=== PATIENT | male | born 1980 | race Caucasian/White ===

== ENCOUNTER 2019-12-11 19:11 | Inpatient (IN) | payer OTHER ==
[~2019-12-11] VITALS: Ht 172.7 cm; Wt 93.0 kg
[~2019-12-11 19:11] MED LIST: ACET1TAB55 PO; CIPR1.5I IV; CIPR500T19 PO; FLAG500T PO; GABA-843 PO; IBUP40TA PO; MORP2CAR IV; MYLASSUD PO; OMEP1CAP73 PO; ONDA4VLL IV; PERCOCET PO; PROT40IN4 IV; [UNRECOGNIZED DRUG - CODE] IV; metronidazole IV; no home meds
[2019-12-11] MEDS: ENOXAPARIN 40MG/0.4ML SYRINGE (J1650 PER 10MG) SC SCH (21:00)
[2019-12-11 21:20] VITALS: BP 124/75
[2019-12-11] MEDS ORDERED: GABA600T4 PO (21:43)
[2019-12-11] MEDS ORDERED: ACETAMINOPHEN TAB 650MG DOSE (2X325MG) PO PRN (22:00)
[2019-12-11] MEDS ORDERED: ADVA115A INH (22:24)
[2019-12-11] MEDS ORDERED: ALBU8.5H PO (22:24)
[2019-12-11] MEDS: cefTRIAXone SOD 2 GM in D5W MINI-BAG PLUS 50 ML IV SCH (22:39)
[2019-12-11 23:01] VITALS: O2SAT 95
[2019-12-11 23:41] VITALS: O2SAT 93
[2019-12-11] MEDS ORDERED: IBUPROFEN 400 MG TAB PO PRN (23:45)
[2019-12-11] MEDS ORDERED: ALBUTEROL 90 MCG/ACT 8GM HFA INHALER INH PRN (23:45)
[2019-12-12] VITALS (7 sets, daily range): BP systolic 103–120; BP diastolic 60–68; O2SAT 88–95
[2019-12-12] MEDS: GABAPENTIN 300 MG CAP PO SCH ×4 (00:09→21:36)
[2019-12-12] MEDS: METOCLOPRAMIDE INJ 10MG/2ML VIAL (J2765 PER 1) IV PRN (00:10)
[2019-12-12] MEDS: NICOTINE 14 MG/24 HR TRANSDERMAL TD SCH ×2 (00:10→08:59)
[2019-12-12] MEDS: ACETAMINOPH W/CODEINE #3 TAB UD PO PRN ×3 (00:10→13:27)
[2019-12-12 00:11] LABS: ALBUMIN 3.7 GM/DL (3.2-5.2); ALT/SGPT 45 U/L (12-78); BILIRUBIN,TOTAL 0.9 MG/DL (0.2-1.0); BLOOD UREA NITROGEN 15 MG/DL (7-18); CALCIUM LEVEL 8.2 MG/DL (8.5-10.1); CARBON DIOXIDE LEVEL 32 MEQ/L (21-32); CHLORIDE LEVEL 103 MEQ/L (98-107); CREATININE FOR GFR 1.24 MG/DL (0.70-1.30); GLOMERULAR FILTRATION RATE > 60.0 (>60); GLUCOSE, FASTING 93 MG/DL (70-100); POTASSIUM SERUM 3.7 MEQ/L (3.5-5.1); SODIUM LEVEL 138 MEQ/L (136-145); TOTAL PROTEIN 7.1 GM/DL (6.4-8.2)
--- NOTE | 2019-12-12 00:30 | REPVR ---
PROCEDURE INFORMATION: Exam: CT Head Without Contrast Exam date and time: 12/12/2019 12:21 AM Age: 39 years old Clinical indication: Pain; Headache; Additional info: Severe headache TECHNIQUE: Imaging protocol: Computed tomography of the head without contrast. Radiation optimization: All CT scans at this facility use at least one of these dose optimization techniques: automated exposure control; mA and/or kV adjustment per patient size (includes targeted exams where dose is matched to clinical indication); or iterative reconstruction. COMPARISON: No relevant prior studies available. FINDINGS: Brain: Normal. No hemorrhage. Unremarkable white matter. No mass effect. Ventricles: Normal. No ventriculomegaly. Bones/joints: Unremarkable. No acute fracture. Sinuses: Visualized sinuses are unremarkable. No fluid levels. Mastoid air cells: Visualized mastoid air cells are well aerated. Soft tissues: Unremarkable. IMPRESSION: No acute intracranial abnormality. Electronically signed by: Emilio Medellin On 12/12/2019 00:30:41 AM
[2019-12-12] MEDS: AZITHROMYCIN INJ 500 MG, VIAL MATE ADAPTER 1 EACH in D5W 250 ML IV SCH ×2 (00:44→22:15)
--- NOTE | 2019-12-12 01:09 | HPEPDOC ---
General Date of Admission December 11, 2019 at 21:07 Date of Service: December 11, 2019 Attending Physician: KENIA SORIANO MD Chief Complaint The patient is a 39-year-old male admitted with a reason for visit of Acute Kidney Injury. 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 At [facility] he had mild leukocytosis and CT chest was grossly normal without any opacities or effusion while D-dimer was 0.8, wnl. While there he reported that several of his workmates have also reported feeling unwell such that his place of work has now closed as a precautionary measure in the setting of the covid-19 crisis. He reported recently having been tested for covid 3 days ago in the outpatient setting and was negative. He was transferred to [facility] with c/f covid-19 infection. At [facility], he arrived hemodynamically stable, afebrile but hypoxemic to mid 80s on room air and was placed on 2L NC. He was otherwise not in distress but flushed, reporting 9-10 frontal headache that is worse when he coughs and not his typical occipital headaches. He reports having a mildly productive cough, episodic fevers that he has been taking tylenol, episodic palpitations and generalized achiness. He otherwise denies chest pain, extremity swelling, recent travel, abdominal pain, N/V/D/constipation/hemoptysisi, hematemesis, hematuria, melena, hematochezia, rashes, easy bruising. Home Medications Scheduled Fluticasone Propion/Salmeterol (Advair Hfa 115-21 Mcg Inhaler) 12 Gm Hfa.aer.ad, 2 PUFFS INH BID, (Reported) Gabapentin (Gabapentin) 600 Mg Tablet, 600 MG PO TID, (Reported) Omeprazole (Omeprazole) 20 Mg Cap, 20 MG PO DAILY, (Reported) Scheduled PRN Acetaminophen (Acetaminophen) 325 Mg Tab, 650 MG PO Q6HP PRN for PAIN OR FEVER, (Reported) Albuterol Sulfate (Albuterol Sulfate Hfa) 8.5 Gm Hfa.aer.ad, 2 PUFFS PO Q6H PRN for SHORTNESS OF BREATH, (Reported) Ibuprofen (Ibuprofen) 400 Mg Tab, 400 MG PO Q4HP PRN for PAIN, (Reported) Allergies Coded Allergies: No Known Allergies (Unverified , 02/19/16) Past Medical History Medical History chronic occipital neuralgia, remote history of diverticulitis, remote history of pericarditis, active smoking, asthma Surgical History L inguinal hernia repair Family History Significant Family History: No pertinent family hx Social History * Smoker: current smoker Alcohol: rarely Drugs: denies Recent Travel/Sick Contacts: Denies: Recent travel, Recent sick contacts Psychosocial History: No pertinent psych hx Lives at home with his and young son. Cutting down on smoking, currently on 1/2 ppd, with patches. Rare alcohol. No illicit drugs. A-FIB/CHADSVASC A-FIB History Current/History of A-Fib/PAF?: No Current PO Anticoag Therapy: No Age/Risk Factor Scoring CHADSVASC: CHADSVASC Response (Comments) Value Age Risk Factor Age < 65 years old 0 Gender Risk Factor Male 0 Hx of CHF No 0 Hx of HTN No 0 Hx of Stroke/TIA/or VTE No 0 Hx of Diabetes No 0 Hx of Vascular Disease No 0 Total 0 Treatment Treatment ordered: NONE Reason Anticoagulant not given: Not indicated/[id number] Review of Systems Constitutional: Reports: Chills, Fever, Malaise, Fatigue, Lethargy; Denies: Weight Loss Eyes: Reports: Pain (bilateral eye heaviness from frontal headache); Denies: Vision change, Conjunctivae inflammation, Eyelid inflammation, Re dness ENT: Reports: Head Aches (severe frontal headache currently), Sinus Congestion (feels like his forehead is full, no nasal congestion); Denies: Ear Pain, Dysphagia, Post Nasal Drip, Sore Throat, Epistaxis Skin: Reports: Other (flushed face and chest area); Denies: Rash, Lesions, Breakdown Pulmonary: Reports: Cough; Denies: Dyspnea, Pleuritic Chest Pain Cardiovascular: Reports: Palpitations; Denies: Chest Pain, Orthopnea, Paroxysmal Noc. Dyspnea, Lt Headedness Gastrointestinal: Denies: Nausea, Vomiting, Abdominal Pain, Diarrhea Genitourinary: Denies: Dysuria, Frequency, Incontinence, Retention Hematologic: Denies: Bruising, Bleeding Excessively Endocrine: Denies: Polydipsia, Polyphagia, Polyuria, Heat Intolerance, Cold Intolerance, Other Endocrine Sx Musculoskeletal: Reports: Joint Pain (generalized ), Muscle Pain (generalized); Denies: Neck Pain, Back Pain, Shoulder Pain Neurological: Denies: Weakness, Numbness, Change in speech, Confusion, Seizures Psych: Reports: Mood Normal; Denies: Depression, Memory Issues Physical Examination General Exam: Positive: Alert; Negative: No Acute Distress (he appears uncomfortable without distress) Eye Exam: Positive: PERRLA, EOMI; Negative: Conjunctiva & lids normal (mild swelling of eyelids, with mild conjunctival injection), Sclera icteric, Ptosis ENT Exam: Positive: Atraumatic, Mucous membr. moist/pink, Pharynx Normal, Nares Patent, Tympanic Membranes Normal; Negative: Pharyngeal Edema Neck Exam: Positive: Supple; Negative: JVD, thyromegaly, Lymphadenopathy Chest Exam: Positive: Clear to auscultation, Normal air movement; Negative: Rales, Rhonchi, Wheezing Heart Exam: Positive: Rate Normal, Normal S1, Normal S2; Negative: Gallops, Murmurs, Rubs Telemetry: Positive: No significant arrhythmia Abdomen Exam: Positive: Normal bowel sounds, Soft, Tenderness (LLQ with mild TTP, no guarding or rebound, no masses); Negative: Hepatospenomegaly Extremity Exam: Positive: Normal pulses; Negative: Clubbing, Cyanosis, Edema, Tenderness, Swelling Skin Exam: Positive: Other skin issue (flushed face and chest); Negative: Nl turgor and temperature (warm face), Rash, Breakdown, Lesion, Pruritus Neuro Exam: Positive: Normal Speech, Strength at 5/5 X4 ext, Normal Tone, Sensation Intact, Cranial Nerves 3-12 NL, Reflexes 2+ Psych Exam: Positive: Mental status NL, Memory Intact, Oriented x 3 Vital Signs Vital Signs Date Time Temp Pulse Resp B/P (MAP) Pulse Ox O2 Delivery O2 Flow Rate FiO2 12/11/19 23:01 95 Nasal Cannula 2.0 12/11/19 21:20 98.8 86 17 124/75 (91) Laboratory Data Labs 24H Laboratory Tests 2 12/11/19 21:26: Coronavirus (COVID-19)(PCR) NEGATIVE Assessment/Plan 39 yo M with a history of chronic occipital neuralgia, remote history of diverticulitis, remote history of pericarditis, active smoking and asthma who admitted to [facility] as a transfer from [facility] with c/f covid-19 after presenting with 3d of myalgias, fever, cough and noted hypoxemia and found to have leukocytosis with normal chest CT with covid testing that was ultimately negative and now admitted for presumed developing PNA with ongoing work up while on empiric antibiotic therapy. Presumed CAP: Fever, cough, myalgias and hypoxemia -Empiric ceftriaxone/azithromycin -covid-19 PCR was negative -sputum culture -urine strep and legionella antigens -blood cultures -incentive spirometry -supplemental oxygen with goal >90% -continue home MDIs for asthma, without wheezing on examination Hypoxemic respiratory failure: Likely secondary to a developing PNA, viral vs. bacterial -D-dimer was wnl, highly unlikely PE -CT chest without rolo opacities, likely early PNA, will monitor and give empiric abx for now -No evidence or signs of acute asthma exacerbation at this time, continuing home MDIs -covid-19 PCR negative on arrival. Also history of negative covid-19 testing in the outpatient setting 3d prior -follow up Severe headache out of character from his chronic occipital neuralgia: -noncon head CT, despite nonfocal neuro exam -some suspicion for sinusitis -continue home gabapentin 600 TID -reglan PRN for nausea and headache -has PRN tylenol and ibuprofen PRN for mild to moderate pain, as well as tylenol with codeine PRN of severe pain Asthma: no evidence of acute exacerbation at this time -continue home advair and PRN albuterol MDIs GERD: -continue home omeprazole Subjective episodic palpitations: -telemetry DVT ppx: lovenox SQ Diet: regular Dispo: 4pav inpatient with ongoing infectious workup, on empiric antibiotics Plan / VTE VTE Prophylaxis Ordered?: Yes KENIA SORIANO MD December 12, 2019 00:22
[2019-12-12 06:12] LABS: HEMATOCRIT 43.8 % (42.0-52.0); HEMOGLOBIN 15.2 g/dl (13.5-17.5); MEAN CORPUSCULAR HEMOGLOBIN 32.5 pg (27.0-33.0); MEAN CORPUSCULAR HGB CONC 34.7 g/dl (32.0-36.5); MEAN CORPUSCULAR VOLUME 93.8 fl (80.0-96.0); PLATELET COUNT, AUTOMATED 141 10^3/uL (150-450); RED BLOOD COUNT 4.67 10^6/uL (4.30-6.10); WHITE BLOOD COUNT 8.8 10^3/uL (4.0-10.0)
[2019-12-12] MEDS: NS 1,000 ML IV SCH ×2 (06:24→14:38)
[2019-12-12 06:37] LABS: BLOOD UREA NITROGEN 15 MG/DL (7-18); C REACTIVE PROTEIN QUANTITATIV 8.85 MG/DL (0.00-0.30); CARBON DIOXIDE LEVEL 30 MEQ/L (21-32); CHLORIDE LEVEL 102 MEQ/L (98-107); CREATININE FOR GFR 1.13 MG/DL (0.70-1.30); GLOMERULAR FILTRATION RATE > 60.0 (>60); GLUCOSE, FASTING 85 MG/DL (70-100); POTASSIUM SERUM 3.8 MEQ/L (3.5-5.1); SODIUM LEVEL 139 MEQ/L (136-145)
[2019-12-12 06:38] LABS: ERYTHROCYTE SEDIMENTATION RATE 10 mm/hr (0-15)
[2019-12-12] MEDS: ADVAIR HFA 115/21MCG INHALER INH SCH ×2 (07:09→19:35)
[2019-12-12] MEDS: OMEPRAZOLE 20 MG CAP PO SCH (08:57)
--- NOTE | 2019-12-12 12:32 | IPNPDOC ---
Date Seen The patient was seen on 12/12/19. Progress Note SUBJECTIVE: 39-year-old male with past medical history of occipital neuralgia was admitted for myalgias and weakness with concern for underlying infection. Patient reports profound headache secondary to occipital neuralgia, continues to have polyarthralgia and myalgias, no other complaints. Patient denies any shortness of breath, chest pain, nausea, vomiting, diarrhea or constipation. 10 point review of system is negative except for above PHYSICAL EXAMINATION: VITAL SIGNS: Please see below. GENERAL: No distress HEENT: Normocephalic, atraumatic, moist mucous membranes NECK: Supple CARDIOVASCULAR EXAMINATION: S1, S2, no murmurs RESPIRATORY EXAMINATION: Clear to auscultation, no wheezing ABDOMINAL EXAMINATION: Soft, nontender, nondistended, positive bowel sounds EXTREMITIES: Range of motion intact SKIN: No rash NEUROLOGICAL EXAMINATION: Alert and oriented 3, no focal deficits PSYCHIATRIC EXAMINATION: Calm and cooperative LABORATORY DATA, IMAGING STUDIES, MICROBIOLOGY: Please see below. ASSESSMENT AND PLAN: 39-year-old male with past medical history of occipital neuralgia is admitted for infectious workup. PROBLEMS: 1. Occipital neuralgia: Continue outpatient medication, additional when necessary medication for breakthrough pain. 2. Myalgias/arthralgias: Infectious workup negative to date, no source of infection identified at this time, continue empiric antibiotics until while awaiting cultures, IV hydration. 3. Asthma: Continue Advair DVT prophylaxis: Heparin subcutaneous. GI prophylaxis: PPI VS, I&O, 24H, Fishbone Vital Signs/I&O Vital Signs Date Time Temp Pulse Resp B/P (MAP) Pulse Ox O2 Delivery O2 Flow Rate FiO2 12/12/19 06:28 18 92 Room Air 12/12/19 06:00 97.8 86 103/61 (75) 12/12/19 05:58 2.0 I&O- Last 24 Hours up to 6 AM 12/12/19 06:00 Intake Total 305 ml Output Total 475 ml Balance -170 ml Laboratory Data 24H LABS Laboratory Tests 2 12/11/19 21:26: Coronavirus (COVID-19)(PCR) NEGATIVE 12/11/19 23:30: Anion Gap 3L, Glomerular Filtration Rate > 60.0, Lactic Acid Level 1.0, Calcium Level 8.2L, Total Bilirubin 0.9, Aspartate Amino Transf (AST/SGOT) 30, Alanine Aminotransferase (ALT/SGPT) 45, Alkaline Phosphatase 63, Total Protein 7.1, Albumin 3.7, Albumin/Globulin Ratio 1.1 12/12/19 05:26: Anion Gap 7L, Glomerular Filtration Rate > 60.0, Calcium Level 8.0L, Nucleated Red Blood Cells % (auto) 0.0, Erythrocyte Sedimentation Rate 10, C-Reactive Protein, Quantitative 8.85H 12/12/19 06:03: Urine Color YELLOW, Urine Appearance CLEAR, Urine pH 5.0, Urine Specific Taft 1.010, Urine Protein NEGATIVE, Urine Glucose (UA) NEGATIVE, Urine Ketones NEGATIVE, Urine Blood NEGATIVE, Urine Nitrite NEGATIVE, Urine Bilirubin NEGATIVE, Urine Urobilinogen 0.2, Urine Leukocyte Esterase NEGATIVE, Urine WBC (Auto) 1, Urine RBC (Auto) 0, Urine Hyaline Casts (Auto) 0, Urine Bacteria (Auto) NEGATIVE, Urine Squamous Epithelial Cells 0, Urine Mucus (Auto) SMALL, Urine Sperm (Auto) CBC/BMP Laboratory Tests 12/11/19 23:30 12/12/19 05:26 Microbiology Microbiology 12/11/19 Blood Culture, Received Pending 12/11/19 Blood Culture, Received Pending 12/11/19 Respiratory Virus Panel (PCR) ([facility]) - Final, Complete DANIEL WINSTON MD December 12, 2019 12:32
[2019-12-12] MEDS ORDERED: MORPHINE 2 MG/ML 1ML VIAL (J2270) IV ONE (14:30)
[2019-12-12] MEDS: ENOXAPARIN 40MG/0.4ML SYRINGE (J1650 PER 10MG) SC SCH (21:36)
[2019-12-12] MEDS: cefTRIAXone SOD 2 GM in D5W MINI-BAG PLUS 50 ML IV SCH (21:36)
[2019-12-12] MEDS ORDERED: PILL CUTTER 1 EACH XX PRN (23:30)
[2019-12-12] MEDS: RIZATRIPTAN BENZOATE 10 MG TAB PO PRN (23:40)
[2019-12-13] MEDS: ACETAMINOPH W/CODEINE #3 TAB UD PO PRN (01:35)
[2019-12-13 06:00] VITALS: BP 114/74
[2019-12-13 06:11] LABS: HEMOGLOBIN 14.1 g/dl (13.5-17.5); MEAN CORPUSCULAR HEMOGLOBIN 32.8 pg (27.0-33.0); MEAN CORPUSCULAR HGB CONC 35.3 g/dl (32.0-36.5); PLATELET COUNT, AUTOMATED 145 10^3/uL (150-450); WHITE BLOOD COUNT 5.5 10^3/uL (4.0-10.0)
[2019-12-13 06:29] LABS: BLOOD UREA NITROGEN 15 MG/DL (7-18); CALCIUM LEVEL 7.7 MG/DL (8.5-10.1); CARBON DIOXIDE LEVEL 27 MEQ/L (21-32); CHLORIDE LEVEL 110 MEQ/L (98-107); CREATININE FOR GFR 0.91 MG/DL (0.70-1.30); GLOMERULAR FILTRATION RATE > 60.0 (>60); GLUCOSE, FASTING 108 MG/DL (70-100); POTASSIUM SERUM 3.8 MEQ/L (3.5-5.1); SODIUM LEVEL 142 MEQ/L (136-145)
[2019-12-13] MEDS: RIZATRIPTAN BENZOATE 10 MG TAB PO PRN (06:54)
[2019-12-13 08:30] VITALS: O2SAT 95
[2019-12-13] MEDS: NICOTINE 14 MG/24 HR TRANSDERMAL TD SCH (08:31)
[2019-12-13] MEDS: GABAPENTIN 300 MG CAP PO SCH (08:31)
[2019-12-13] MEDS: OMEPRAZOLE 20 MG CAP PO SCH (08:32)
[2019-12-13] MEDS: ADVAIR HFA 115/21MCG INHALER INH SCH ×2 (08:47→08:49)
[2019-12-13 09:02] LABS: C REACTIVE PROTEIN QUANTITATIV 4.44 MG/DL (0.00-0.30)
[2019-12-13] MEDS ORDERED: MAXA10TA14 PO ×2 (12:00→12:24)
[2019-12-13] MEDS ORDERED: ZOFR8TAB24 PO (12:24)
[2019-12-13] MEDS: METOCLOPRAMIDE INJ 10MG/2ML VIAL (J2765 PER 1) IV PRN (13:04)
--- NOTE | 2019-12-13 19:04 | DS.PDOC ---
Discharge Summary General Date of Admission December 11, 2019 at 21:07 Date of Discharge December 13, 2019 Attending Physician: DANIEL WINSTON MD Discharge Summary PROCEDURES PERFORMED DURING STAY: [None] ADMISSION DIAGNOSES: 1. Hypoxic respiratory failure 2. SOB concerning for CAP 3. Chronic occipital neuralgia 4. JOSEF DISCHARGE DIAGNOSES: 1. 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 At [place] he had mild leukocytosis and CT chest was grossly normal without any opacities or effusion while D-dimer was 0.8, wnl. While there he reported that several of his workmates have also reported feeling unwell such that his place of work has now closed as a precautionary measure in the setting of the covid-19 crisis. He reported recently having been tested for covid 3 days ago in the outpatient setting and was negative. He was transferred to [facility] with c/f covid-19 infection. At [facility], he arrived hemodynamically stable, afebrile but hypoxemic to mid 80s on room air and was placed on 2L NC. He was otherwise not in distress but flushed, reporting 9-10 frontal headache that is worse when he coughs and not his typical occipital headaches. He reports having a mildly productive cough, episodic fevers that he has been taking tylenol, episodic palpitations and generalized achiness. He otherwise denies chest pain, extremity swelling, recent travel, abdominal pain, N/V/D/constipation/hemoptysisi, hematemesis, hematuria, melena, hematochezia, rashes, easy bruising. HOSPITAL COURSE: Patient was admitted as transfer from outside hospital with acute kidney injury, myalgias, arthralgias, concerning for Covid 19 infection. He was started on empiric azithromycin and ceftriaxone. Covid 19 test was admini stered and was negative. The patient complained of flare of occipital neuralgia for which she was given Rizatriptan. All other home medications were continued. On hospital day 3 he was discharged home in stable state, pain management, with referral to neurology for possible reported injections and will need DEVYN evaluation. The patient did have desaturations while sleeping at night. DISCHARGE MEDICATIONS: Please see below. ALLERGIES: Please see below. PHYSICAL EXAMINATION ON DISCHARGE: GENERAL: No distress HEENT: Normocephalic, atraumatic, moist mucous membranes NECK: Supple CARDIOVASCULAR EXAMINATION: S1, S2, no murmurs RESPIRATORY EXAMINATION: Clear to auscultation, no wheezing ABDOMINAL EXAMINATION: Soft, nontender, nondistended, positive bowel sounds EXTREMITIES: Range of motion intact SKIN: No rash NEUROLOGICAL EXAMINATION: Alert and oriented 3, no focal deficits PSYCHIATRIC EXAMINATION: Calm and cooperative LABORATORY DATA: Please see below. MICROBIOLOGY: Please see below. IMAGING: FINDINGS: Brain: Normal. No hemorrhage. Unremarkable white matter. No mass effect. Ventricles: Normal. No ventriculomegaly. Bones/joints: Unremarkable. No acute fracture. Sinuses: Visualized sinuses are unremarkable. No fluid levels. Mastoid air cells: Visualized mastoid air cells are well aerated. Soft tissues: Unremarkable. IMPRESSION: No acute intracranial abnormality. DISCHARGE CONDITION: stable DISPOSITION: ACTIVITY: As tolerated DIET: As tolerated DISCHARGE PLAN AND INSTRUCTIONS: 1. Referral to neurology for DEVYN evaluation and trigger point injections 2. Follow-up with PCP within 7 days ITEMS TO FOLLOWUP ON ON OUTPATIENT: None TIME SPENT ON DISCHARGE: Greater than 35 minutes. Vital Signs/I&Os Vital Signs Date Time Temp Pulse Resp B/P (MAP) Pulse Ox O2 Delivery O2 Flow Rate FiO2 12/13/19 13:00 93 Room Air 12/13/19 08:33 18 12/13/19 06:00 97.2 84 114/74 (87) 12/12/19 22:00 2.0 I&O- Last 24 Hours up to 6 AM 12/13/19 06:00 Intake Total 2400 ml Output Total 700 ml Balance 1700 ml Laboratory Data Labs 24H Laboratory Tests 2 12/13/19 05:44: Nucleated Red Blood Cells % (auto) 0.0, Anion Gap 5L, Glomerular Filtration Rate > 60.0, Calcium Level 7.7L, C-Reactive Protein, Quantitative 4.44H CBC/BMP Laboratory Tests 12/13/19 05:44 Microbiology Microbiology 12/11/19 Blood Culture - Preliminary, Resulted No growth after 24 hours . All specim... 12/11/19 Blood Culture - Preliminary, Resulted No growth after 24 hours . All specim... 12/11/19 Respiratory Virus Panel (PCR) ([facility]) - Final, Complete Discharge Medications Scheduled Fluticasone Propion/Salmeterol (Advair Hfa 115-21 Mcg Inhaler) 12 Gm Hfa.aer.ad, 2 PUFFS INH BID, (Reported) Gabapentin (Gabapentin) 600 Mg Tablet, 600 MG PO TID, (Reported) Omeprazole (Omeprazole) 20 Mg Cap, 20 MG PO DAILY, (Reported) Ondansetron HCl (Zofran) 8 Mg Tablet, 8 MG PO DAILY for nausea/vomiting Scheduled PRN Acetaminophen (Acetaminophen) 325 Mg Tab, 650 MG PO Q6HP PRN for PAIN OR FEVER, (Reported) Albuterol Sulfate (Albuterol Sulfate Hfa) 8.5 Gm Hfa.aer.ad, 2 PUFFS PO Q6H PRN for SHORTNESS OF BREATH, (Reported) Ibuprofen (Ibuprofen) 400 Mg Tab, 400 MG PO Q4HP PRN for PAIN, (Reported) Rizatriptan Benzoate (Maxalt) 10 Mg Tablet, 5 MG PO Q2HP PRN for MIGRAINE Take only w/ migraine or when coming on; don't exceed 30mg in 24hr Allergies Coded Allergies: No Known Allergies (Unverified , 02/19/16) GME ATTESTATION GME ATTESTATION My faculty preceptor for this patient encounter was physically present during the encounter and was fully available. All aspects of the patient interview, examination, medical decision making process, and medical care plan development were reviewed and approved by the faculty preceptor. The faculty preceptor is aware and concurs with the plan as stated in the body of this note and will attest to such by his/her cosignature. GIANCARLO BAIRD MD December 13, 2019 19:04
[2019-12-15 14:19] LABS: BODY FLUID CULTURE Not indicated. (.); LEGIONELLA ANTIGEN URINE Negative (Negative); ORGANISM ID Not indicated. (.); SPECIMEN SOURCE Urine (.); URINE STREP PNEUMONIAE ANTIGEN Negative (Negative)
== END 2019-12-13 13:33 | disposition home or self-care (01) | DRG 552 ==
LOC: M MSPAV 21:07
PROVIDERS: ADMIT Internal Medicine; ATTEND Internal Medicine
DX: M54.81 Occipital neuralgia (principal); N17.9 Acute kidney failure, unspecified; M79.10 Myalgia, unspecified site; J45.909 Unspecified asthma, uncomplicated; F17.200 Nicotine dependence, unspecified, uncomplicated; K21.9 Gastro-esophageal reflux disease without esophagitis; Z79.899 Other long term (current) drug therapy; Z11.59 Encounter for screening for other viral diseases; R09.02 Hypoxemia

== ENCOUNTER → 2020-04-21 | Outpatient (CLI) | payer OTHER ==
[~2020-04-21] MED LIST changes: +ADVA115A INH; +ALBU8.5H PO; +GABA600T4 PO; +MAXA10TA14 PO; +ZOFR8TAB24 PO
== END ==
LOC: M PAIN 11:08
PROVIDERS: ATTEND Nurse Practitioner Family
DX: M79.18 Myalgia, other site (principal)

== ENCOUNTER → 2020-12-21 | Outpatient (CLI) | payer OTHER ==
[~2020-12-21] MED LIST changes: +GABA-282 PO; -GABA-843 PO; +IBUP1TAB5 PO; -IBUP40TA PO
--- NOTE | 2020-12-26 16:00 | SLEEPCENT ---
NOCTURNAL POLYSOMNOGRAPHY DATE: 12/21/2020 ORDERED BY: MARKUS Schultz Nocturnal polysomnography was performed for evaluation of sleep physiology in this patient with a history of excessive somnolence and nonrestorative sleep. 8 hours and 1 minute of data were reviewed. There were 416.5 minutes of sleep identified. Sleep latency was prolonged at 19 minutes. REM latency was short at 66.5 minutes. Sleep architecture was reasonably good with four REM cycles. Overall sleep efficiency was 88.1%. The electrocardiogram showed a sinus rhythm with an average heart rate of 68 beats per minute; rate range 60 to 90. EEG showed normal waveforms for wake and sleep. There were 123 respiratory events identified of 10 seconds in duration or greater for an apnea-hypopnea index of 17.7. The events were primarily obstructive, not exclusive to sleep stage nor body posture. Arousals from respiratory events occurred 4.9 times per hour and oxygen desaturations were seen into the low 80s. There was some minor limb activity. Limb movement arousal index was 1.7. IMPRESSION: Obstructive sleep apnea syndrome (G47.33), apnea-hypopnea index 17.7. RECOMMENDATION: The patient should be encouraged to return to the [facility] for [facility]. In the interim, alcohol and sedative avoidance should be practiced and caution exercised during the operation of motor vehicles.
== END ==
LOC: M SLEEP 20:00
PROVIDERS: ATTEND Physician Assistant
DX: G47.33 Obstructive sleep apnea (adult) (pediatric) (principal)

== ENCOUNTER → 2021-02-08 | Outpatient (CLI) | payer OTHER ==
--- NOTE | 2021-02-12 15:41 | SLEEPCENT ---
DATE: 02/08/2021 CPAP TITRATION ORDERED BY: MARKUS Schultz Nocturnal polysomnography was performed for the titration of pressure therapy in this patient with obstructive sleep apnea syndrome, apnea-hypopnea index of 17.7. For testing a ResMed Airfit N20 full face mask of medium size was used, 4 cm of water pressure were applied to the circuit, and the lights were extinguished. Eight hours and 21 minutes of data were reviewed. There were 461.5 minutes of sleep identified. Sleep latency was normal at 8.5 minutes. REM latency was short 15 62.5 minutes. Sleep architecture was good with 5 REM cycles. Overall sleep efficiency was 93.1%. The electrocardiogram showed a sinus rhythm with an average heart rate of 68 beats per minute. EEG showed normal waveforms for wake and sleep. Respiratory events were best palliated with CPAP at a pressure of +10 and remaining measures of sleep physiology were normal. IMPRESSION: Obstructive sleep apnea syndrome (G47.33). RECOMMENDATION: Nightly use of pressure therapy 10 cm of water. cc: NEIL HENDRIX DO
== END ==
LOC: M SLEEP 20:00
PROVIDERS: ATTEND Physician Assistant
DX: G47.33 Obstructive sleep apnea (adult) (pediatric) (principal)

== ENCOUNTER 2021-05-28 16:56 | Emergency (ER) | payer BC, OTHER ==
[~2021-05-28] VITALS: Ht 172.7 cm; Wt 100.0 kg
[2021-05-28] MEDS ORDERED: DIVA500T94 (17:04)
[2021-05-28] MEDS ORDERED: NS 1,000 ML IV ONE (18:30)
[2021-05-28] MEDS ORDERED: KETOROLAC 30 MG/ML 1ML VIAL IV ONE (18:30)
[2021-05-28] MEDS ORDERED: fentaNYL 100 MCG/2 ML INJECTION (J3010) IV ONE (18:30)
[2021-05-28 19:27] LABS: BASO % 0.1 % (0.0-1.0); EOS % 0.1 % (0.0-3.0); HEMATOCRIT 49.9 % (42.0-52.0); HEMOGLOBIN 17.5 g/dl (13.5-17.5); LYMPH # 1.9 10^3/uL (1.5-5.0); LYMPH % 13.2 % (24.0-44.0); MEAN CORPUSCULAR HGB CONC 35.1 g/dl (32.0-36.5); MONO # 0.8 10^3/uL (0.0-0.8); MONO % 5.3 % (2.0-8.0); NEUTROPHILS # 11.6 10^3/uL (1.5-8.5); NEUTROPHILS % 80.8 % (36.0-66.0); PLATELET COUNT, AUTOMATED 166 10^3/uL (150-450); RED BLOOD COUNT 5.31 10^6/uL (4.30-6.10); WHITE BLOOD COUNT 14.4 10^3/uL (4.0-10.0)
[2021-05-28 19:47] LABS: ALBUMIN 3.7 GM/DL (3.2-5.2); ALT/SGPT 39 U/L (12-78); BILIRUBIN,DIRECT 0.2 MG/DL (0.0-0.2); BILIRUBIN,TOTAL 1.2 MG/DL (0.2-1.0); BLOOD UREA NITROGEN 16 MG/DL (7-18); CALCIUM LEVEL 9.2 MG/DL (8.5-10.1); CARBON DIOXIDE LEVEL 28 MEQ/L (21-32); CHLORIDE LEVEL 103 MEQ/L (98-107); CREATININE FOR GFR 1.11 MG/DL (0.70-1.30); GLOMERULAR FILTRATION RATE > 60.0 (>60); GLUCOSE, FASTING 100 MG/DL (70-100); LIPASE 151 U/L (73-393); SODIUM LEVEL 138 MEQ/L (136-145); TOTAL PROTEIN 7.1 GM/DL (6.4-8.2)
[2021-05-28 19:51] LABS: RSV AMPLIFICATION NEGATIVE (NEGATIVE)
--- NOTE | 2021-05-28 21:59 | REPVR ---
PROCEDURE INFORMATION: Exam: CT Abdomen And Pelvis With Contrast Exam date and time: 05/28/2021 8:46 PM Age: 41 years old Clinical indication: Abdominal pain; Localized; Lower; Additional info: Lower abd pain, HX of divertic TECHNIQUE: Imaging protocol: Computed tomography of the abdomen and pelvis with contrast. Axial, coronal and sagittal reformatted images were created and reviewed. Radiation optimization: All CT scans at this facility use at least one of these dose optimization techniques: automated exposure control; mA and/or kV adjustment per patient size (includes targeted exams where dose is matched to clinical indication); or iterative reconstruction. Contrast material: ISOVUE 370; Contrast volume: 100 ml; Contrast route: INTRAVENOUS (IV); COMPARISON: CT ABD/PELVIS W/ W/O CONTRAST - OUTSIDE PRIOR 02/18/2016 1:33 PM FINDINGS: Lungs: Linear stranding and groundglass at the lung bases, likely due to atelectasis and/or scarring. Diaphragm: Small hiatal hernia. Liver: Mild hepatomegaly. Diffuse hepatic steatosis. Gallbladder and bile ducts: No radiodense gallstones. No biliary ductal dilatation. Pancreas: Unremarkable. Spleen: Mild splenomegaly. Adrenal glands: Normal. No mass. Kidneys and ureters: No mass. No radiodense calculi. No hydronephrosis. Stomach and bowel: Focal area of wall thickening and associated pericolonic stranding in the sigmoid colon in a region containing multiple diverticula. No obstruction. No pneumatosis. Appendix: Normal. Intraperitoneal space: No ascites. No organized collection. Tiny foci of extraluminal gas adjacent to the inflamed sigmoid colon, consistent with microperforation. 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 No dissection. Lymph nodes: No pathologically enlarged lymph nodes. Urinary bladder: Unremarkable as visualized. Reproductive: Unremarkable. Bones/joints: No acute osseous abnormality. Soft tissues: Small, fat containing umbilical and inguinal hernias. IMPRESSION: 1. Acute sigmoid diverticulitis with evidence of microperforation, as described above. No abscess or obstruction. Follow-up to resolution is recommended. 2. Additional findings, as above. Electronically signed by: Jose Guevara On 05/28/2021 21:59:22 PM
[2021-05-28] MEDS ORDERED: ACET1TAB16 PO (22:15)
[2021-05-28] MEDS ORDERED: ONDA4TAB6 PO (22:15)
[2021-05-28] MEDS ORDERED: AUGM875T28 PO (22:15)
[2021-05-28] MEDS ORDERED: AUGMENTIN 875 MG TAB PO ONE (22:20)
[2021-05-28 22:40] VITALS: BP 101/56
[2021-05-28] MEDS ORDERED: PERCOCET 5MG/325MG TAB PO ONE (22:50)
== END 2021-05-28 22:59 | disposition home or self-care (01) ==
LOC: M ED 16:56
DX: K57.80 Diverticulitis of intestine, part unspecified, with perforation and abscess without bleeding (principal); J45.909 Unspecified asthma, uncomplicated; G43.909 Migraine, unspecified, not intractable, without status migrainosus; K21.9 Gastro-esophageal reflux disease without esophagitis; Z79.899 Other long term (current) drug therapy
CPT/HCPCS: 74177; 80048; 80076; 83605; 83690; 85025; 87631; 96361; 96374; 96375; 99284; J1885; J3010

== ENCOUNTER → 2022-02-25 | Outpatient (CLI) | payer BC ==
[~2022-02-25] MED LIST changes: +ACET300T48 PO; +AUGM875T28 PO; +DIVA500T94; +ONDA4TAB6 PO
== END ==
LOC: M PAIN 11:15
PROVIDERS: ATTEND Nurse Practitioner Family
DX: M54.81 Occipital neuralgia (principal); J34.2 Deviated nasal septum; G47.30 Sleep apnea, unspecified; K21.9 Gastro-esophageal reflux disease without esophagitis; Z79.899 Other long term (current) drug therapy; F17.210 Nicotine dependence, cigarettes, uncomplicated; J30.2 Other seasonal allergic rhinitis

== ENCOUNTER → 2022-04-11 | Outpatient (CLI) | payer BC ==
[~2022-04-11] MED LIST changes: -MAXA10TA14 PO; +RIZA10TA64 PO
== END ==
LOC: M LABSMTC 09:07
PROVIDERS: ATTEND Anesthesiology
DX: Z01.812 Encounter for preprocedural laboratory examination (principal); Z20.822 Contact with and (suspected) exposure to COVID-19

== ENCOUNTER → 2022-04-16 | Outpatient (CLI) | payer BC ==
[~2022-04-16] MED LIST changes: +BUPIVACAINE HCL 0.25% 10ML VIAL As Ordered ONE; +BUPIVACAINE HCL 0.25% 30ML VIAL As Ordered ONE; +NORCO, ANEXSIA 5/325MG TABLET (HYDROcodone/ACETAMINOPHEN) As Ordered ONE; +TRIAMCINOLONE ACETONIDE SUSP 40 MG/ML VIAL (J3301) As Ordered ONE; +diazePAM 5MG TABLET As Ordered ONE
== END ==
LOC: M PAIN 08:30
PROVIDERS: ATTEND Anesthesiology
DX: M54.81 Occipital neuralgia (principal); K40.90 Unilateral inguinal hernia, without obstruction or gangrene, not specified as recurrent; G43.909 Migraine, unspecified, not intractable, without status migrainosus; J34.2 Deviated nasal septum; G47.30 Sleep apnea, unspecified; K21.9 Gastro-esophageal reflux disease without esophagitis; F17.200 Nicotine dependence, unspecified, uncomplicated; Z79.899 Other long term (current) drug therapy; J30.2 Other seasonal allergic rhinitis
CPT/HCPCS: 64405; 64450; J3301

== ENCOUNTER → 2022-05-08 | Outpatient (CLI) | payer BC ==
[~2022-05-08] MED LIST changes: -BUPIVACAINE HCL 0.25% 10ML VIAL As Ordered ONE; -BUPIVACAINE HCL 0.25% 30ML VIAL As Ordered ONE; -NORCO, ANEXSIA 5/325MG TABLET (HYDROcodone/ACETAMINOPHEN) As Ordered ONE; -TRIAMCINOLONE ACETONIDE SUSP 40 MG/ML VIAL (J3301) As Ordered ONE; -diazePAM 5MG TABLET As Ordered ONE
== END ==
LOC: M PAIN 11:00
PROVIDERS: ATTEND Nurse Practitioner Family
DX: G89.29 Other chronic pain (principal); M54.81 Occipital neuralgia; G43.909 Migraine, unspecified, not intractable, without status migrainosus; K40.20 Bilateral inguinal hernia, without obstruction or gangrene, not specified as recurrent; J34.2 Deviated nasal septum; G47.30 Sleep apnea, unspecified; K21.9 Gastro-esophageal reflux disease without esophagitis; F17.210 Nicotine dependence, cigarettes, uncomplicated; Z79.899 Other long term (current) drug therapy; J30.2 Other seasonal allergic rhinitis

== ENCOUNTER 2022-08-27 10:28 | Inpatient (IN) | payer BC ==
[~2022-08-27] VITALS: Ht 172.7 cm; Wt 103.6 kg
[2022-08-27] MEDS ORDERED: CYCL-707 PO (10:44)
[2022-08-27] MEDS ORDERED: LEVOTAB10 PO (10:44)
[2022-08-27] MEDS ORDERED: NS 1,000 ML IV SCH (11:30)
[2022-08-27] MEDS ORDERED: ONDANSETRON 4MG 2ML VIAL IV ONE (11:30)
[2022-08-27] MEDS: MORPHINE 4 MG/ML 1ML VIAL IV PRN ×2 (11:52→13:01)
[2022-08-27 12:07] LABS: BASO % 0.2 % (0.0-1.0); EOS % 0.2 % (0.0-3.0); HEMATOCRIT 50.8 % (42.0-52.0); HEMOGLOBIN 17.7 g/dl (13.5-17.5); LYMPH % 6.2 % (24.0-44.0); MEAN CORPUSCULAR HEMOGLOBIN 33.1 pg (27.0-33.0); MEAN CORPUSCULAR HGB CONC 34.8 g/dl (32.0-36.5); MONO # 0.8 10^3/uL (0.0-0.8); MONO % 4.9 % (2.0-8.0); NEUTROPHILS # 14.6 10^3/uL (1.5-8.5); NEUTROPHILS % 87.9 % (36.0-66.0); PLATELET COUNT, AUTOMATED 192 10^3/uL (150-450); RED BLOOD COUNT 5.35 10^6/uL (4.30-6.10); WHITE BLOOD COUNT 16.7 10^3/uL (4.0-10.0)
[2022-08-27] MEDS ORDERED: metroNIDAZOLE 500 MG in IV 1 EA IV ONE (12:25)
[2022-08-27] MEDS ORDERED: CIPROFLOXACIN 400 MG in IV 1 EA IV ONE (12:25)
[2022-08-27 12:26] LABS: LIPASE 40 U/L (12-53)
[2022-08-27 12:27] LABS: INR 1.05; PROTHROMBIN TIME 13.9 SECONDS (12.5-14.5)
[2022-08-27 12:28] LABS: ALKALINE PHOSPHATASE 70 U/L (46-116); ALT/SGPT 44 U/L (7.0-40); AST/SGOT 33 U/L (<34); BILIRUBIN,DIRECT 0.3 MG/DL (<0.4); BILIRUBIN,TOTAL 1.2 MG/DL (0.3-1.2); BLOOD UREA NITROGEN 13 MG/DL (9-23); CALCIUM LEVEL 9.1 MG/DL (8.5-10.1); CARBON DIOXIDE LEVEL 28 MMOL/L (20-31); CHLORIDE LEVEL 103 MMOL/L (98-107); CREATININE FOR GFR 1.25 MG/DL (0.70-1.30); GLOMERULAR FILTRATION RATE > 60.0 (>60); GLUCOSE, FASTING 120 MG/DL (60-100); POTASSIUM SERUM 4.3 MMOL/L (3.5-5.1); SODIUM LEVEL 138 MMOL/L (136-145); TOTAL PROTEIN 7.3 G/DL (5.7-8.2)
[2022-08-27 12:41] LABS: RSV AMPLIFICATION NEGATIVE (NEGATIVE)
[2022-08-27] MEDS ORDERED: RIZA10TA58 PO (12:58)
[2022-08-27] MEDS ORDERED: OMEP40CA5 PO (12:58)
[2022-08-27] MEDS ORDERED: HOME MED LIST COMPLETE! XX SCH (13:00)
[2022-08-27 15:30] VITALS: BP 114/75
[2022-08-27] MEDS ORDERED: MORPHINE 4 MG/ML 1ML VIAL IV PRN ×2 (15:50→23:00)
[2022-08-27] MEDS ORDERED: MORPHINE 2 MG/ML 1ML VIAL IV PRN (17:00)
[2022-08-27] MEDS ORDERED: CYCLOBENZAPRINE 10MG TABLET PO PRN (17:00)
[2022-08-27] MEDS ORDERED: RIZATRIPTAN MLT 10 MG TAB PO PRN (17:00)
[2022-08-27] MEDS: NS 1,000 ML IV SCH (18:07)
[2022-08-27 20:10] VITALS: BP 114/75
[2022-08-27] MEDS: OMEPRAZOLE 20MG CAP PO SCH (20:11)
[2022-08-27] MEDS ORDERED: MORPHINE 2 MG/ML 1ML VIAL IV ONE (20:35)
[2022-08-27] MEDS: PIPERACILLIN/TAZOBACTAM SOD 3.375 GM in D5W MINI-BAG PLUS 50 ML IV SCH (21:47)
[2022-08-28] MEDS: NS 1,000 ML IV SCH ×5 (01:07→20:32)
[2022-08-28] MEDS: PIPERACILLIN/TAZOBACTAM SOD 3.375 GM in D5W MINI-BAG PLUS 50 ML IV SCH ×4 (03:23→20:32)
[2022-08-28 05:44] VITALS: BP 108/66
[2022-08-28 06:38] LABS: BASO % 0.3 % (0.0-1.0); EOS # 0.1 10^3/uL (0.0-0.5); EOS % 0.5 % (0.0-3.0); HEMATOCRIT 44.8 % (42.0-52.0); LYMPH # 1.7 10^3/uL (1.5-5.0); LYMPH % 14.7 % (24.0-44.0); MEAN CORPUSCULAR HEMOGLOBIN 33.3 pg (27.0-33.0); MEAN CORPUSCULAR HGB CONC 34.6 g/dl (32.0-36.5); MEAN CORPUSCULAR VOLUME 96.1 fl (80.0-96.0); MONO # 0.7 10^3/uL (0.0-0.8); MONO % 5.9 % (2.0-8.0); NEUTROPHILS # 9.1 10^3/uL (1.5-8.5); NEUTROPHILS % 78.3 % (36.0-66.0); PLATELET COUNT, AUTOMATED 164 10^3/uL (150-450); RED BLOOD COUNT 4.66 10^6/uL (4.30-6.10); WHITE BLOOD COUNT 11.6 10^3/uL (4.0-10.0)
[2022-08-28 06:45] LABS: HEMOGLOBIN 15.5 g/dl (13.5-17.5)
[2022-08-28 07:10] LABS: BLOOD UREA NITROGEN 12 MG/DL (9-23); CALCIUM LEVEL 8.2 MG/DL (8.5-10.1); CARBON DIOXIDE LEVEL 24 MMOL/L (20-31); CHLORIDE LEVEL 105 MMOL/L (98-107); CREATININE FOR GFR 1.15 MG/DL (0.70-1.30); GLOMERULAR FILTRATION RATE > 60.0 (>60); GLUCOSE, FASTING 112 MG/DL (60-100); MAGNESIUM LEVEL 1.8 MG/DL (1.8-2.4); POTASSIUM SERUM 4.1 MMOL/L (3.5-5.1); SODIUM LEVEL 138 MMOL/L (136-145)
[2022-08-28] MEDS: ENOXAPARIN 40MG/0.4ML SYRINGE (J1650 PER 10MG) SC SCH (09:00)
[2022-08-28] MEDS: ACETAMINOPHEN TAB 650MG DOSE (2X325MG) PO PRN ×2 (11:45→20:45)
[2022-08-28 13:35] LABS: URIC ACID 5.4 MG/DL (3.7-9.2)
[2022-08-28 14:00] VITALS: BP 108/65
[2022-08-28] MEDS ORDERED: KETOROLAC 30 MG/ML 1ML VIAL IV ONE (16:05)
[2022-08-28] MEDS: OMEPRAZOLE 20MG CAP PO SCH (20:32)
[2022-08-28 20:42] VITALS: BP 109/68
[2022-08-29] MEDS ORDERED: MORPHINE 4 MG/ML 1ML VIAL As Ordered ONE (03:57)
[2022-08-29] MEDS ORDERED: ZOSYN 3.375GM VIAL As Ordered ONE (04:18)
[2022-08-29] MEDS: PIPERACILLIN/TAZOBACTAM SOD 3.375 GM in D5W MINI-BAG PLUS 50 ML IV SCH ×4 (05:13→22:02)
[2022-08-29 06:27] VITALS: BP 124/73
[2022-08-29 06:55] LABS: BASO % 0.4 % (0.0-1.0); EOS # 0.2 10^3/uL (0.0-0.5); EOS % 3.2 % (0.0-3.0); HEMATOCRIT 40.8 % (42.0-52.0); HEMOGLOBIN 14.4 g/dl (13.5-17.5); LYMPH # 1.3 10^3/uL (1.5-5.0); LYMPH % 18.6 % (24.0-44.0); MEAN CORPUSCULAR HEMOGLOBIN 33.4 pg (27.0-33.0); MEAN CORPUSCULAR HGB CONC 35.3 g/dl (32.0-36.5); MEAN CORPUSCULAR VOLUME 94.7 fl (80.0-96.0); MONO # 0.4 10^3/uL (0.0-0.8); NEUTROPHILS # 5.1 10^3/uL (1.5-8.5); NEUTROPHILS % 71.1 % (36.0-66.0); PLATELET COUNT, AUTOMATED 151 10^3/uL (150-450); RED BLOOD COUNT 4.31 10^6/uL (4.30-6.10); WHITE BLOOD COUNT 7.1 10^3/uL (4.0-10.0)
[2022-08-29 07:12] LABS: BLOOD UREA NITROGEN 12 MG/DL (9-23); CALCIUM LEVEL 7.9 MG/DL (8.5-10.1); CARBON DIOXIDE LEVEL 24 MMOL/L (20-31); CHLORIDE LEVEL 107 MMOL/L (98-107); CREATININE FOR GFR 1.06 MG/DL (0.70-1.30); GLOMERULAR FILTRATION RATE > 60.0 (>60); GLUCOSE, FASTING 76 MG/DL (60-100); MAGNESIUM LEVEL 1.9 MG/DL (1.8-2.4); POTASSIUM SERUM 4.1 MMOL/L (3.5-5.1); SODIUM LEVEL 140 MMOL/L (136-145)
[2022-08-29] MEDS: ENOXAPARIN 40MG/0.4ML SYRINGE (J1650 PER 10MG) SC SCH (08:20)
[2022-08-29] MEDS: ACETAMINOPHEN TAB 650MG DOSE (2X325MG) PO PRN (08:58)
[2022-08-29] MEDS: NS 1,000 ML IV SCH (10:59)
[2022-08-29 11:28] VITALS: BP 126/74
[2022-08-29 14:17] VITALS: BP 102/66
[2022-08-29 22:00] VITALS: BP 131/82
[2022-08-29] MEDS: OMEPRAZOLE 20MG CAP PO SCH (22:02)
[2022-08-30] MEDS: ACETAMINOPHEN TAB 650MG DOSE (2X325MG) PO PRN (04:08)
[2022-08-30] MEDS: PIPERACILLIN/TAZOBACTAM SOD 3.375 GM in D5W MINI-BAG PLUS 50 ML IV SCH ×2 (04:08→09:40)
[2022-08-30] MEDS ORDERED: KETOROLAC 30 MG/ML 1ML VIAL IV ONE (04:35)
[2022-08-30 06:00] VITALS: BP 101/54
[2022-08-30 07:16] LABS: BASO % 0.5 % (0.0-1.0); EOS # 0.2 10^3/uL (0.0-0.5); EOS % 3.5 % (0.0-3.0); HEMATOCRIT 41.4 % (42.0-52.0); HEMOGLOBIN 14.9 g/dl (13.5-17.5); LYMPH # 1.3 10^3/uL (1.5-5.0); MEAN CORPUSCULAR HEMOGLOBIN 33.3 pg (27.0-33.0); MEAN CORPUSCULAR VOLUME 92.4 fl (80.0-96.0); MONO # 0.4 10^3/uL (0.0-0.8); MONO % 6.9 % (2.0-8.0); NEUTROPHILS # 3.8 10^3/uL (1.5-8.5); NEUTROPHILS % 65.9 % (36.0-66.0); PLATELET COUNT, AUTOMATED 181 10^3/uL (150-450); RED BLOOD COUNT 4.48 10^6/uL (4.30-6.10); WHITE BLOOD COUNT 5.8 10^3/uL (4.0-10.0)
[2022-08-30 07:39] LABS: BLOOD UREA NITROGEN 8 MG/DL (9-23); CALCIUM LEVEL 8.3 MG/DL (8.5-10.1); CARBON DIOXIDE LEVEL 26 MMOL/L (20-31); CHLORIDE LEVEL 108 MMOL/L (98-107); CREATININE FOR GFR 1.09 MG/DL (0.70-1.30); GLOMERULAR FILTRATION RATE > 60.0 (>60); GLUCOSE, FASTING 107 MG/DL (60-100); SODIUM LEVEL 141 MMOL/L (136-145)
[2022-08-30] MEDS: ENOXAPARIN 40MG/0.4ML SYRINGE (J1650 PER 10MG) SC SCH (09:00)
[2022-08-30] MEDS ORDERED: CIPROFLOXACIN 500MG TABLET PO ONE (09:45)
[2022-08-30] MEDS ORDERED: metroNIDAZOLE (FLAGYL) 500MG TABLET PO ONE (09:45)
[2022-08-30] MEDS ORDERED: METR-265 PO (10:01)
[2022-08-30] MEDS ORDERED: CIPR500T39 PO (10:01)
[2022-08-30] MEDS ORDERED: CVS1CAP2 PO (10:01)
[2022-08-30] MEDS ORDERED: KETO10TAB PO ×2 (10:03→10:13)
[2022-08-30] MEDS ORDERED: PROT1TAB2 PO (11:24)
== END 2022-08-30 13:40 | disposition home or self-care (01) | DRG 244 ==
LOC: M ED 12:42 → M ED INP 14:24 → ENRESERV 14:44 → M MS5PR 15:35
PROVIDERS: ADMIT Internal Medicine; ATTEND Internal Medicine
DX: K57.32 Diverticulitis of large intestine without perforation or abscess without bleeding (principal); F17.210 Nicotine dependence, cigarettes, uncomplicated; J45.909 Unspecified asthma, uncomplicated; K76.0 Fatty (change of) liver, not elsewhere classified; K21.9 Gastro-esophageal reflux disease without esophagitis; K44.9 Diaphragmatic hernia without obstruction or gangrene; M19.072 Primary osteoarthritis, left ankle and foot; G43.909 Migraine, unspecified, not intractable, without status migrainosus; M54.81 Occipital neuralgia; M77.32 Calcaneal spur, left foot; M79.672 Pain in left foot; Z79.899 Other long term (current) drug therapy

== ENCOUNTER 2022-11-21 13:02 | Day surgery (SDC) | payer BC ==
[~2022-11-21] VITALS: Ht 172.7 cm; Wt 102.5 kg
[~2022-11-21 13:02] MED LIST changes: +CIPR500T39 PO; +CVS1CAP2 PO; +CYCL-707 PO; +KETO10TAB PO; +LEVOTAB10 PO; +METR-265 PO; +NS 1,000 ML IV ONE; +OMEP40CA5 PO; +PROT1TAB2 PO; +RIZA10TA58 PO
[2022-11-21] MEDS ORDERED: ACETAMINOPHEN TAB 650MG DOSE (2X325MG) PO ONE (15:05)
[2022-11-21 15:48] VITALS: BP 122/69
== END 2022-11-21 15:48 | disposition home or self-care (01) ==
LOC: M OPP 13:02
PROVIDERS: ATTEND Surgery
DX: K57.30 Diverticulosis of large intestine without perforation or abscess without bleeding (principal); K57.32 Diverticulitis of large intestine without perforation or abscess without bleeding; K44.9 Diaphragmatic hernia without obstruction or gangrene; K29.70 Gastritis, unspecified, without bleeding; G47.33 Obstructive sleep apnea (adult) (pediatric); Z99.89 Dependence on other enabling machines and devices; F17.200 Nicotine dependence, unspecified, uncomplicated; Z79.899 Other long term (current) drug therapy

== ENCOUNTER → 2023-02-10 | Outpatient (CLI) | payer BC ==
[~2023-02-10] MED LIST changes: -CIPR1.5I IV; +GASTROGRAFIN SOLUTION 30ML ONE; +ISOVUE-370 76% 100ML VIAL ONE; -NS 1,000 ML IV ONE; +[UNRECOGNIZED DRUG - CODE] IV
== END ==
LOC: M PLAIMG 11:14
PROVIDERS: ATTEND Physician Assistant
DX: K57.30 Diverticulosis of large intestine without perforation or abscess without bleeding (principal); K76.0 Fatty (change of) liver, not elsewhere classified
CPT/HCPCS: 74178; Q9963; Q9967

== ENCOUNTER 2024-01-06 08:19 | Day surgery (SDC) | payer BC ==
[~2024-01-06] VITALS: Ht 172.7 cm; Wt 94.1 kg
[~2024-01-06 08:19] MED LIST changes: +AMOX875T2 PO; -GASTROGRAFIN SOLUTION 30ML ONE; -ISOVUE-370 76% 100ML VIAL ONE; +LIDOCAINE 2% 100MG/5ML SDV (FOR ANES.) As Ordered ONE; +MIDAZOLAM INJ 2MG/2ML VIAL As Ordered ONE; +ONDA-282 PO; -ONDA4TAB6 PO; +ROCURONIUM BROMIDE 50MG/5ML VIAL As Ordered ONE; +SUMA100T2 PO; +TIZA10TA PO; +fentaNYL 100 MCG/2 ML INJECTION As Ordered ONE; +propofoL 200 MG/20 ML VIAL As Ordered ONE
[2024-01-06] MEDS ORDERED: ONDANSETRON 4MG 2ML VIAL As Ordered ONE (08:55)
[2024-01-06] MEDS: LR 1,000 ML IV SCH (09:23)
[2024-01-06] MEDS ORDERED: ACETAMINOPHEN 1000MG 100ML IV BAG As Ordered ONE (09:44)
[2024-01-06] MEDS: ceFAZolin SOD 2 GM in IV 1 EA IV ONE (09:45)
[2024-01-06] MEDS ORDERED: KETOROLAC 60MG 2ML VIAL As Ordered ONE (09:46)
[2024-01-06] MEDS ORDERED: SUGAMMADEX SODIUM 500 MG/5 ML VIAL (BRIDION) As Ordered ONE (09:46)
[2024-01-06] MEDS ORDERED: fentaNYL 100 MCG/2 ML INJECTION IV PRN (10:40)
[2024-01-06] MEDS ORDERED: METOCLOPRAMIDE INJ 10MG/2ML VIAL IV PRN (10:40)
[2024-01-06] MEDS: HYDROMORPHONE HCL 0.5 MG/ 0.5 ML SYRINGE IV PRN (10:53)
[2024-01-06] MEDS: ONDANSETRON 4MG 2ML VIAL IV PRN (10:59)
[2024-01-06] MEDS: oxyCODONE 5MG TAB PO PRN (11:10)
[2024-01-06] MEDS ORDERED: NS 1,000 ML IV SCH (11:45)
[2024-01-06] MEDS ORDERED: NORCO, ANEXSIA 5/325MG TABLET (HYDROcodone/ACETAMINOPHEN) PO PRN (11:45)
[2024-01-06 12:16] VITALS: BP 109/68; TEMP 98.2; O2SAT 95
== END 2024-01-06 12:34 | disposition home or self-care (01) ==
LOC: M SDC 08:19
PROVIDERS: ATTEND Surgery
DX: K40.91 Unilateral inguinal hernia, without obstruction or gangrene, recurrent (principal); D17.6 Benign lipomatous neoplasm of spermatic cord; G47.30 Sleep apnea, unspecified; F17.210 Nicotine dependence, cigarettes, uncomplicated; Z79.899 Other long term (current) drug therapy
CPT/HCPCS: 49651; 93005; C1781; J0131; J0665; J0690; J1100; J1170; J1885; J2250; J2405; J3010

== ENCOUNTER 2024-05-12 08:30 | Emergency (ER) | payer BC ==
[~2024-05-12] VITALS: Ht 172.7 cm; Wt 92.7 kg
[~2024-05-12 08:30] MED LIST changes: +GABA-1172 PO; +GABA-1490 PO; -GABA-282 PO; -GABA600T4 PO; -LIDOCAINE 2% 100MG/5ML SDV (FOR ANES.) As Ordered ONE; -MIDAZOLAM INJ 2MG/2ML VIAL As Ordered ONE; -ROCURONIUM BROMIDE 50MG/5ML VIAL As Ordered ONE; -fentaNYL 100 MCG/2 ML INJECTION As Ordered ONE; -propofoL 200 MG/20 ML VIAL As Ordered ONE
[2024-05-12] MEDS: ONDANSETRON 4MG 2ML VIAL IV ONE (09:02)
[2024-05-12] MEDS: MORPHINE 4 MG/ML 1ML VIAL IV ONE ×2 (09:05→09:35)
[2024-05-12 09:17] LABS: BASO % 0.2 % (0.0-1.0); EOS # 0.1 10^3/uL (0.0-0.5); EOS % 0.6 % (0.0-3.0); HEMATOCRIT 49.7 % (42.0-52.0); HEMOGLOBIN 18.1 g/dl (13.5-17.5); LYMPH # 1.8 10^3/uL (1.5-5.0); LYMPH % 13.7 % (24.0-44.0); MEAN CORPUSCULAR HEMOGLOBIN 33.6 pg (27.0-33.0); MEAN CORPUSCULAR HGB CONC 36.4 g/dl (32.0-36.5); MEAN CORPUSCULAR VOLUME 92.2 fl (80.0-96.0); MONO # 0.8 10^3/uL (0.0-0.8); MONO % 5.8 % (2.0-8.0); NEUTROPHILS # 10.5 10^3/uL (1.5-8.5); NEUTROPHILS % 79.1 % (36.0-66.0); PLATELET COUNT, AUTOMATED 186 10^3/uL (150-450); RED BLOOD COUNT 5.39 10^6/uL (4.30-6.10); WHITE BLOOD COUNT 13.3 10^3/uL (4.0-10.0)
[2024-05-12 09:28] LABS: LIPASE 42 U/L (12-53)
[2024-05-12 09:30] LABS: ALKALINE PHOSPHATASE 79 U/L (46-116); ALT/SGPT 25 U/L (7.0-40); AST/SGOT 16 U/L (<34); BILIRUBIN,DIRECT 0.4 MG/DL (<0.4); BILIRUBIN,TOTAL 1.6 MG/DL (0.3-1.2); BLOOD UREA NITROGEN 15 MG/DL (9-23); CALCIUM LEVEL 9.6 MG/DL (8.5-10.1); CARBON DIOXIDE LEVEL 24 MMOL/L (20-31); CHLORIDE LEVEL 108 MMOL/L (98-107); CREATININE FOR GFR 1.01 MG/DL (0.70-1.30); GLOMERULAR FILTRATION RATE > 60.0 (>60); GLUCOSE, FASTING 116 MG/DL (60-100); SODIUM LEVEL 140 MMOL/L (136-145); TOTAL PROTEIN 7.5 G/DL (5.7-8.2)
[2024-05-12] MEDS ORDERED: ISOVUE-370 76% 100ML VIAL As Ordered ONE (10:19)
[2024-05-12] MEDS: NS 500 ML IV ONE (10:47)
[2024-05-12] MEDS: PIPERACILLIN/TAZOBACTAM SOD 4.5 GM in D5W MINI-BAG PLUS 50 ML IV ONE (10:49)
[2024-05-12] MEDS: KETOROLAC 30 MG/ML 1ML VIAL IV ONE (11:03)
[2024-05-12] MEDS: VANCOMYCIN/WATER FOR INJ 1,000 MG in IV 1 EA IP ONE (12:26)
[2024-05-12] MEDS ORDERED: CIPR500T39 PO (13:25)
[2024-05-12] MEDS ORDERED: METR375C3 PO (13:25)
[2024-05-12] MEDS ORDERED: HYDR-4571 PO (13:25)
[2024-05-12 13:36] VITALS: BP 102/58; TEMP 98.7; O2SAT 97
== END 2024-05-12 13:52 | disposition home or self-care (01) ==
LOC: M ED 08:30
DX: K57.32 Diverticulitis of large intestine without perforation or abscess without bleeding (principal); I10 Essential (primary) hypertension; J45.909 Unspecified asthma, uncomplicated; Z79.2 Long term (current) use of antibiotics; Z79.899 Other long term (current) drug therapy
CPT/HCPCS: 74021; 74177; 80048; 80076; 83605; 83690; 85025; 86140; 96365; 96366; 96374; 96375; 96376; 99284; J1885; J2405; J2543; J3372; Q9967

== ENCOUNTER 2024-08-31 07:30 | Inpatient (IN) | payer BC ==
[~2024-08-31] VITALS: Ht 172.7 cm; Wt 101.0 kg
[~2024-08-31 07:30] MED LIST changes: +HYDR-4571 PO; +METR375C3 PO
[2024-09-06] VITALS (7 sets, daily range): BP systolic 114–122; BP diastolic 73–81; TEMP 97.5–98.4; O2SAT 91–97
[2024-09-06] MEDS ORDERED: propofoL 200 MG/20 ML VIAL As Ordered ONE (07:57)
[2024-09-06] MEDS ORDERED: SUGAMMADEX SODIUM 500 MG/5 ML VIAL (BRIDION) As Ordered ONE (07:57)
[2024-09-06] MEDS ORDERED: ROCURONIUM BROMIDE 50MG/5ML VIAL As Ordered ONE (07:57)
[2024-09-06] MEDS ORDERED: LIDOCAINE 2% 100MG/5ML SDV (FOR ANES.) As Ordered ONE (07:57)
[2024-09-06] MEDS ORDERED: ONDANSETRON 4MG 2ML VIAL As Ordered ONE (07:59)
[2024-09-06] MEDS: PANTOPRAZOLE 40MG VIAL IV SCH (09:00)
[2024-09-06] MEDS ORDERED: fentaNYL 250 MCG/5 ML INJECTION As Ordered ONE (09:45)
[2024-09-06] MEDS ORDERED: RIZA10TA58 PO (10:07)
[2024-09-06] MEDS ORDERED: ALBU8.5H INH (10:07)
[2024-09-06] MEDS ORDERED: NEOM500T PO (10:07)
[2024-09-06] MEDS ORDERED: ACET-683 PO (10:07)
[2024-09-06] MEDS ORDERED: METR-265 PO (10:07)
[2024-09-06] MEDS ORDERED: HYDR-3713 PO (10:07)
[2024-09-06] MEDS ORDERED: MIDAZOLAM INJ 2MG/2ML VIAL As Ordered ONE (10:21)
[2024-09-06] MEDS: ceFAZolin 1GM VIAL As Ordered ONE (10:25)
[2024-09-06] MEDS: metroNIDAZOLE/NACL 500MG(5MG/ML) 100ML BAG As Ordered ONE (10:25)
[2024-09-06] MEDS: ceFAZolin 2 GM/D5W 50 ML IV BAG As Ordered ONE (10:41)
[2024-09-06] MEDS: ceFAZolin SOD 3 GM in DEXTROSE 5% (D5W) MINI-BAG PLU 1... IV ONE (10:48)
[2024-09-06] MEDS: metroNIDAZOLE 500 MG in IV 1 EA IV ONE (10:52)
[2024-09-06] MEDS ORDERED: HOME MED LIST COMPLETE! XX SCH (10:55)
[2024-09-06] MEDS ORDERED: ACETAMINOPHEN 1000MG/100ML IV BAG As Ordered ONE (11:02)
[2024-09-06] MEDS ORDERED: dexmedeTOMIDine (4MCG/ML)200MCG/50ML BTL (PRECEDEX) As Ordered ONE (11:08)
[2024-09-06] MEDS ORDERED: ePHEDrine SULFATE 25 MG/5 ML(5MG/ML) SYRINGE As Ordered ONE (11:40)
[2024-09-06] MEDS: GLUCAGON INJ 1MG VIAL As Ordered ONE (12:02)
[2024-09-06] MEDS ORDERED: KETOROLAC 60MG 2ML VIAL As Ordered ONE (12:45)
[2024-09-06] MEDS: BUPivacaine LIPOSOME/PF 266MG 20ML VIAL (13.3MG/ML)(EXPAREL) As Ordered ONE (12:50)
[2024-09-06] MEDS ORDERED: IPRATROPIUM 0.5MG/ALBUTEROL 2.5MG INH SOL UD 3ML (DUONEB) NEB PRN (13:05)
[2024-09-06] MEDS ORDERED: ONDANSETRON 4MG 2ML VIAL IV PRN (13:05)
[2024-09-06] MEDS: fentaNYL 100 MCG/2 ML INJECTION IV PRN (13:43)
[2024-09-06] MEDS: ONDANSETRON 4MG 2ML VIAL IV PRN (13:44)
[2024-09-06] MEDS: IPRATROPIUM 0.5MG/ALBUTEROL 2.5MG INH SOL UD 3ML (DUONEB) NEB SCH (14:00)
[2024-09-06] MEDS: oxyCODONE 5MG TAB PO PRN (14:06)
[2024-09-06] MEDS: MORPHINE 2 MG/ML 1ML VIAL IV PRN ×2 (14:10→21:32)
[2024-09-06] MEDS: NS (Normal Saline) 0.9% 1,000 ML IV SCH (15:21)
[2024-09-06] MEDS: KETOROLAC 30 MG/ML 1ML VIAL IV SCH (18:25)
[2024-09-06] MEDS: ERTAPENEM SODIUM 1 GM in NS MINI-BAG PLUS 50 ML IV SCH (18:25)
[2024-09-07 00:07] VITALS: BP 102/61; TEMP 98.4; O2SAT 93
[2024-09-07 04:19] VITALS: BP 111/63; TEMP 98.1; O2SAT 95
[2024-09-07 06:15] LABS: HEMATOCRIT 41.2 % (42.0-52.0); HEMOGLOBIN 14.4 g/dl (13.5-17.5); MEAN CORPUSCULAR HEMOGLOBIN 32.8 pg (27.0-33.0); MEAN CORPUSCULAR VOLUME 93.8 fl (80.0-96.0); PLATELET COUNT, AUTOMATED 166 10^3/uL (150-450); RED BLOOD COUNT 4.39 10^6/uL (4.30-6.10); WHITE BLOOD COUNT 10.5 10^3/uL (4.0-10.0)
[2024-09-07 07:00] LABS: BLOOD UREA NITROGEN 17 MG/DL (9-23); CALCIUM LEVEL 8.3 MG/DL (8.5-10.1); CARBON DIOXIDE LEVEL 25 MMOL/L (20-31); CHLORIDE LEVEL 108 MMOL/L (98-107); CREATININE FOR GFR 0.97 MG/DL (0.70-1.30); GLOMERULAR FILTRATION RATE > 60.0 (>60); GLUCOSE, FASTING 110 MG/DL (60-100); POTASSIUM SERUM 4.3 MMOL/L (3.5-5.1); SODIUM LEVEL 140 MMOL/L (136-145)
[2024-09-07 08:00] VITALS: BP 92/52; TEMP 98.1; O2SAT 93
[2024-09-07] MEDS: MORPHINE 4 MG/ML 1ML VIAL IV PRN (09:16)
[2024-09-07 12:00] VITALS: BP 102/60; TEMP 98.1; O2SAT 95
[2024-09-07] MEDS: MORPHINE 2 MG/ML 1ML VIAL IV PRN (13:21)
[2024-09-07 16:00] VITALS: BP 110/61; TEMP 97.9; O2SAT 90
[2024-09-07 20:44] VITALS: BP 113/63; TEMP 98.1; O2SAT 92
[2024-09-08 00:41] VITALS: BP 115/64; TEMP 98; O2SAT 91
[2024-09-08 05:13] VITALS: BP 132/64; TEMP 97.2; O2SAT 94
[2024-09-08 05:54] LABS: HEMATOCRIT 36.2 % (42.0-52.0); HEMOGLOBIN 12.5 g/dl (13.5-17.5); MEAN CORPUSCULAR HEMOGLOBIN 33.3 pg (27.0-33.0); MEAN CORPUSCULAR HGB CONC 34.5 g/dl (32.0-36.5); MEAN CORPUSCULAR VOLUME 96.5 fl (80.0-96.0); PLATELET COUNT, AUTOMATED 128 10^3/uL (150-450); RED BLOOD COUNT 3.75 10^6/uL (4.30-6.10); WHITE BLOOD COUNT 5.8 10^3/uL (4.0-10.0)
[2024-09-08 06:28] LABS: BLOOD UREA NITROGEN 12 MG/DL (9-23); CALCIUM LEVEL 7.9 MG/DL (8.5-10.1); CARBON DIOXIDE LEVEL 28 MMOL/L (20-31); CHLORIDE LEVEL 109 MMOL/L (98-107); CREATININE FOR GFR 0.98 MG/DL (0.70-1.30); GLOMERULAR FILTRATION RATE > 60.0 (>60); GLUCOSE, FASTING 84 MG/DL (60-100); POTASSIUM SERUM 4.3 MMOL/L (3.5-5.1); SODIUM LEVEL 142 MMOL/L (136-145)
[2024-09-08 08:00] VITALS: BP 118/67; TEMP 97.7; O2SAT 94
[2024-09-08] MEDS: DOCUSATE SODIUM 100MG CAPSULE PO SCH (11:12)
[2024-09-08 12:00] VITALS: BP 139/80; TEMP 97.9; O2SAT 94
[2024-09-08 16:00] VITALS: BP 99/54; TEMP 97.9; O2SAT 93
[2024-09-08 20:00] VITALS: BP 144/75; TEMP 97.9; O2SAT 92
[2024-09-09] VITALS: BP 130/77; TEMP 96.8; O2SAT 94
[2024-09-09 04:00] VITALS: BP 121/79; TEMP 97.7; O2SAT 96
[2024-09-09 06:00] LABS: HEMATOCRIT 36.2 % (42.0-52.0); HEMOGLOBIN 12.8 g/dl (13.5-17.5); MEAN CORPUSCULAR HEMOGLOBIN 33.5 pg (27.0-33.0); MEAN CORPUSCULAR HGB CONC 35.4 g/dl (32.0-36.5); MEAN CORPUSCULAR VOLUME 94.8 fl (80.0-96.0); PLATELET COUNT, AUTOMATED 133 10^3/uL (150-450); RED BLOOD COUNT 3.82 10^6/uL (4.30-6.10); WHITE BLOOD COUNT 5.3 10^3/uL (4.0-10.0)
[2024-09-09 06:45] LABS: BLOOD UREA NITROGEN 15 MG/DL (9-23); CARBON DIOXIDE LEVEL 29 MMOL/L (20-31); CHLORIDE LEVEL 107 MMOL/L (98-107); CREATININE FOR GFR 0.97 MG/DL (0.70-1.30); GLOMERULAR FILTRATION RATE > 60.0 (>60); GLUCOSE, FASTING 90 MG/DL (60-100); SODIUM LEVEL 143 MMOL/L (136-145)
[2024-09-09 08:00] VITALS: BP 133/82; TEMP 97.5; O2SAT 92
[2024-09-09 12:00] VITALS: BP 141/84; TEMP 97.5; O2SAT 95
== END 2024-09-09 12:15 | disposition home or self-care (01) | DRG 221 ==
LOC: M OR 09-06 09:11 → M MSPAV 09-06 15:05
PROVIDERS: ADMIT Surgery; ATTEND Surgery
PROC: 0DTN4ZZ Resection of Sigmoid Colon, Percutaneous Endoscopic Approach (ICD-10-PCS; principal; 2024-09-06 11:00)
DX: K57.32 Diverticulitis of large intestine without perforation or abscess without bleeding (principal); I10 Essential (primary) hypertension; J45.909 Unspecified asthma, uncomplicated; G47.33 Obstructive sleep apnea (adult) (pediatric); F17.200 Nicotine dependence, unspecified, uncomplicated; Z79.899 Other long term (current) drug therapy